=== PATIENT | female | born 1985 | race Caucasian/White ===

== ENCOUNTER 2018-08-05 08:50 | Inpatient (IN) | payer OTHER ==
[~2018-08-05] VITALS: Ht 155 cm; Wt 90.7 kg
[2018-08-05] MEDS ORDERED: RINGERS SOLUTION,LACTATED 1,000 ML IV SCH (09:23)
[2018-08-05] MEDS ORDERED: OXYTOCIN 30 UNITS/LACT RINGERS 500 ML IV ONE (09:23)
[2018-08-05] MEDS ORDERED: RINGERS SOLUTION,LACTATED 1,000 ML IV PRN (09:23)
[2018-08-05] MEDS ORDERED: CITRIC ACID/SODIUM CITRATE 30 ML SOLUTION UDCUP PO PRN (09:30)
[2018-08-05] MEDS ORDERED: PNV1TABL54 PO (09:30)
[2018-08-05] MEDS ORDERED: OXYGEN THERAPY IH SCH (09:30)
[2018-08-05] MEDS ORDERED: LIDOCAINE/PF 1% 30 ML VIAL INJ PRN (09:30)
[2018-08-05] MEDS ORDERED: METOCLOPRAMIDE HCL 5 MG/ML 2 ML VIAL IVP PRN (09:30)
[2018-08-05] MEDS ORDERED: METHYLERGONOVINE MALEATE 0.2 MG/ML VIAL IM PRN (09:30)
[2018-08-05] MEDS ORDERED: FentaNYL CITRATE-PF 100 MCG/2 ML VIAL IVP PRN (09:30)
[2018-08-05 09:33] VITALS: BP 135/90
[2018-08-05 09:53] LABS: BASOPHILS % (AUTO) 0.2 % (0.0-2.0); EOSINOPHILS % (AUTO) 0.4 % (1.0-6.0); HEMATOCRIT 34.6 % (36-46); HEMOGLOBIN 11.7 g/dL (12.0-16.0); LYMPHOCYTES # (AUTO) 1.6 K/uL (1.0-4.8); LYMPHOCYTES % (AUTO) 12.7 % (22.0-44.0); MEAN CORPUSCULAR HGB CONC 33.8 G/dL (31.0-37.0); MEAN CORPUSCULAR VOLUME 86 fL (80-100); MONOCYTES # (AUTO) 0.9 K/uL (0.1-1.0); MONOCYTES % (AUTO) 7.1 % (2.0-9.0); NEUTROPHILS % (AUTO) 79.6 % (40.0-70.0); PLATELET COUNT (AUTO)-OB 283 K/uL (150-450); RED BLOOD CELL COUNT(AUTO) 4.04 MIL/uL (4.00-5.20); RED CELL DISTRIBUTION WIDTH 13.4 % (11.5-14.5)
[2018-08-05] MEDS ORDERED: ROPIVACAINE HCL/PF 0.2% 100 ML ED ONE (11:03)
[2018-08-05] MEDS ORDERED: ROPIVACAINE HCL/PF 0.2% 100 ML ED PRN (11:49)
[2018-08-05] MEDS ORDERED: ONDANSETRON HCL 4 MG/2 ML VIAL IVP PRN (12:00)
[2018-08-05] MEDS ORDERED: NALBUPHINE HCL 10 MG/ML VIAL IVP PRN (12:00)
[2018-08-05] MEDS ORDERED: DiphenhydrAMINE HCL 50 MG/ML VIAL IVP PRN (12:00)
[2018-08-05] MEDS ORDERED: OXYTOCIN 30 UNITS/LACT RINGERS 500 ML IV PRN (18:07)
[2018-08-05] MEDS ORDERED: AMPICILLIN SODIUM 2 GM/NS 100 ML IV ONE (18:15)
[2018-08-05] MEDS ORDERED: AMPICILLIN SODIUM 1 GM/NS 50 ML IV SCH (22:15)
[2018-08-06] MEDS ORDERED: GLYCERIN/WITCH HAZEL LEAF 40 PADS JAR TP PRN (03:00)
[2018-08-06] MEDS ORDERED: ACETAMINOPHEN/CODEINE 300-30 MG TABLET PO PRN (03:00)
[2018-08-06] MEDS ORDERED: BENZOCAINE 20%/MENTHOL 56 GM SPRAY CANISTER TP PRN (03:00)
[2018-08-06] MEDS ORDERED: LANOLIN 7 GM OINTMENT TP PRN (03:00)
[2018-08-06] MEDS: ACETAMINOPHEN/CODEINE 300-30 MG TABLET PO PRN ×2 (03:37→21:55)
[2018-08-06] MEDS: IBUPROFEN 800 MG TABLET PO SCH ×3 (03:38→19:58)
[2018-08-06] MEDS: MAGNESIUM HYDROXIDE SUSPENSION 30 ML UDCUP PO SCH ×3 (09:15→23:00)
[2018-08-07] MEDS: IBUPROFEN 800 MG TABLET PO SCH ×2 (02:44→09:38)
[2018-08-07] MEDS: ACETAMINOPHEN/CODEINE 300-30 MG TABLET PO PRN (08:25)
[2018-08-07] MEDS: MAGNESIUM HYDROXIDE SUSPENSION 30 ML UDCUP PO SCH (09:22)
[2018-08-07] MEDS ORDERED: IBUP-2070 PO (12:21)
[2018-08-07] MEDS ORDERED: FERR-89 PO (12:22)
== END 2018-08-07 13:15 | disposition home or self-care (01) | DRG 807 ==
LOC: OBSVTOIN 08:50 → 4S 08:50
PROVIDERS: ADMIT Obstetrics & Gynecology; ATTEND Obstetrics & Gynecology
PROC: 10D07Z6 Extraction of Products of Conception, Vacuum, Via Natural or Artificial Opening (ICD-10-PCS; principal; 2018-08-05)
PROC: 0W8NXZZ Division of Female Perineum, External Approach (ICD-10-PCS; 2018-08-05)
PROC: 3E0R3BZ Introduction of Anesthetic Agent into Spinal Canal, Percutaneous Approach (ICD-10-PCS; 2018-08-05)
PROC: 00HU33Z Insertion of Infusion Device into Spinal Canal, Percutaneous Approach (ICD-10-PCS; 2018-08-05)
DX: O69.81X0 Labor and delivery complicated by cord around neck, without compression, not applicable or unspecified (principal); Z37.0 Single live birth; Z3A.38 38 weeks gestation of pregnancy
CPT/HCPCS: 86850; 86900; 86901; J0290; J2590; J2795; J7120